=== PATIENT | female | born 1995 | race African-American/Black ===

== ENCOUNTER 2019-07-19 04:45 | Emergency (ER) | payer SELFPAY ==
[2019-07-19] MEDS ORDERED: FENTANYL CITR 100 MCG/2 ML ONE (05:21)
[2019-07-19] MEDS ORDERED: NA CHLORIDE 0.9% 1,000 ML ONE (05:22)
[2019-07-19] MEDS ORDERED: ONDANSETRON 4 MG/2 ML VIAL ONE (05:22)
[2019-07-19 05:24] LABS: Basophils % 0.4 % (0-1.3); Hematocrit 39.7 % (36.0-45.0); MPV 9.2 fL (7.6-11.3); RBC Red Blood Cell Count 4.59 M/uL (3.86-4.86)
[2019-07-19 05:41] LABS: ALT/SGPT 19 U/L (12-78); AST/SGOT 16 U/L (15-37); Alkaline Phosphatase 66 U/L (45-117); BUN Blood Urea Nitrogen 9 mg/dL (7-18); Bicarbonate 22 mmol/L (21-32); Bilirubin Direct 0.1 mg/dL (0-0.2); Bilirubin Total 0.5 mg/dL (0.2-1.0); Glucose Level 102 mg/dL (74-106); Lipase 90 U/L (73-393); Potassium 3.4 mmol/L (3.5-5.1); Protein, Total 7.7 g/dL (6.4-8.2); Sodium Level 143 mmol/L (136-145)
[2019-07-19 07:03] LABS: Urine Bacteria <20 /HPF (<20); Urine Culture Reflex Order REFLEXED; Urine RBC TNTC /HPF (NONE SEEN)
[2019-07-19] MEDS ORDERED: KETOROLAC 30 MG/ML INJ ONE (07:28)
--- NOTE | 2019-07-19 08:14 | EDPHYS ---
Physician Documentation [facility] Name: Tiffany Sarkar Age: 24 yrs Sex: Female : 1995 Arrival Date: 07/19/2019 Time: 04:48 Bed 5 Private MD: ED Physician Rudy Adams HPI: 07/19 07:05 This 24 yrs old Black Female presents to ER via Ambulatory with complaints of Abdominal pm1 Pain, Vomiting. 07:05 The patient presents with abdominal pain in the upper abdomen. Onset: The pm1 symptoms/episode began/occurred yesterday morning. The symptoms do not radiate. Associated signs and symptoms: Pertinent positives: nausea and vomiting, Pertinent negatives: chest pain, constipation, diarrhea, dysuria, fever, shortness of breath. Severity of pain: in the emergency department the pain is actually worse. The patient has not experienced similar symptoms in the past. The patient has not recently seen a physician. 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 - Social history:: Smoking status: Patient/guardian denies using tobacco, Patient uses street drugs, marijuana. - Ebola Screening: : No symptoms or risks identified at this time. ROS: 07:05 Constitutional: Negative for fever, chills, and weight loss, Eyes: Negative for injury, pm1 pain, redness, and discharge, ENT: Negative for injury, pain, and discharge, Neck: Negative for injury, pain, and swelling, Cardiovascular: Negative for chest pain, palpitations, and edema, Respiratory: Negative for shortness of breath, cough, wheezing, and pleuritic chest pain. 07:05 Back: Negative for injury and pain, : Negative for injury, bleeding, discharge, and swelling, MS/Extremity: Negative for injury and deformity, Skin: Negative for injury, rash, and discoloration, Neuro: Negative for headache, weakness, numbness, tingling, and seizure. 07:05 Abdomen/GI: Positive for abdominal pain, nausea and vomiting, Negative for diarrhea, constipation. Exam: 07:05 Constitutional: This is a well developed, well nourished patient who is awake, alert, pm1 and in no acute distress. Head/Face: Normocephalic, atraumatic. Eyes: Pupils equal round and reactive to light, extra-ocular motions intact. Lids and lashes normal. Conjunctiva and sclera are non-icteric and not injected. Cornea within normal limits. Periorbital areas with no swelling, redness, or edema. ENT: Nares patent. No nasal discharge, no septal abnormalities noted. Tympanic membranes are normal and external auditory canals are clear. Oropharynx with no redness, swelling, or masses, exudates, or evidence of obstruction, uvula midline. Mucous membranes moist. Neck: Trachea midline, no thyromegaly or masses palpated, and no cervical lymphadenopathy. Supple, full range of motion without nuchal rigidity, or vertebral point tenderness. No Meningismus. Chest/axilla: Normal chest wall appearance and motion. Nontender with no deformity. No lesions are appreciated. Cardiovascular: Regular rate and rhythm with a normal S1 and S2. No gallops, murmurs, or rubs. Normal PMI, no JVD. No pulse deficits. Respiratory: Lungs have equal breath sounds bilaterally, clear to auscultation and percussion. No rales, rhonchi or wheezes noted. No increased work of breathing, no retractions or nasal flaring. Back: No spinal tenderness. No costovertebral tenderness. Full range of motion. Skin: Warm, dry with normal turgor. Normal color with no rashes, no lesions, and no evidence of cellulitis. MS/ Extremity: Pulses equal, no cyanosis. Neurovascular intact. Full, normal range of motion. 07:05 Abdomen/GI: Inspection: abdomen appears normal, Bowel sounds: normal, Palpation: abdomen is soft and non-tender, mass, is not appreciated, rebound tenderness, is not appreciated. 07:05 Neuro: Orientation: is normal, Motor: is normal, Sensation: is normal. 08:05 Abdomen/GI: Inspection: abdomen appears normal, Bowel sounds: normal, Palpation: pm1 abdomen is soft and non-tender. Vital Signs: 04:58 BP 151 / 103; Pulse 84; Resp 16; Temp 98.4; Pulse Ox 99% on R/A; Weight 79.38 kg; aa1 Height 5 ft. 4 in. (162.56 cm); Pain 6/10; 05:38 BP 119 / 106; Pulse 79; Resp 17 S; Pulse Ox 100% on R/A; cc3 06:20 BP 104 / 85; Pulse 84; Resp 16 S; Pulse Ox 100% on R/A; Pain 2/10; cc3 04:58 Body Mass Index 30.04 (79.38 kg, 162.56 cm) aa1 MDM: 06:10 Patient medically screened. pm1 07:41 Data reviewed: vital signs. Data interpreted: Pulse oximetry: on room air is 100 %. pm1 Interpretation: normal. 08:05 Counseling: I had a detailed discussion with the patient and/or guardian regarding: the pm1 historical points, exam findings, and any diagnostic results supporting the discharge/admit diagnosis, lab results, radiology results, the need for outpatient follow up, to return to the emergency department if symptoms worsen or persist or if there are any questions or concerns that arise at home. 08:05 ED course: Reported negative U/S to patient and recommended CT ABD/pelvis to further pm1 evaluate abdominal pain. Patient's reporting that she is hungry. She reports hunger pain and no pain with palpation. Patient refused CT and wants to go home. Therefore will discharge home with antiemetic and pain medication. Educated on return precautions. 08:05 ED course: Patient reports resolution of pain with Toradol adminstered. pm1 07/19 05:05 Order name: Urine Microscopic Only; Complete Time: 07:21 07/19 05:06 Order name: Basic Metabolic Panel; Complete Time: 06:09 07/19 05:06 Order name: CBC with Diff; Complete Time: 06:09 07/19 05:06 Order name: Hepatic Function; Complete Time: 06:09 07/19 05:06 Order name: Lipase; Complete Time: 06:09 07/19 07:04 Order name: Urine Culture EDAL 07/19 05:05 Order name: Urine Test (obtain specimen); Complete Time: 07:35 07/19 05:05 Order name: Urine Dipstick-Ancillary (obtain specimen); Complete Time: 07:36 07/19 05:06 Order name: US Abdomen Limited 07/19 07:34 Order name: Test, Urine; Complete Time: 08:02 EDAL 07/19 05:06 Order name: IV Saline Lock; Complete Time: 05:28 07/19 05:06 Order name: Labs collected and sent; Complete Time: : Administered Medications: 05:15 Drug: NS 0.9% 1000 ml Route: IV; Rate: 1 bolus; Site: right antecubital; cc3 06:10 Follow up: Response: No adverse reaction; IV Status: Completed infusion; IV Intake: cc3 1000ml 05:17 Drug: fentaNYL (PF) 50 mcg {Note: RASS 0.} Route: IVP; Site: right antecubital; cc3 05:45 Follow up: Response: No adverse reaction; Pain is decreased; RASS: Alert and Calm (0) cc3 05:22 Drug: Zofran 4 mg Route: IVP; Site: right antecubital; cc3 05:45 Follow up: Response: No adverse reaction; Nausea is decreased cc3 07:52 Drug: TORadol 30 mg Route: IVP; Site: right antecubital; Disposition: 07/19/19 08:12 Discharged to Home. Impression: Unspecified abdominal pain, Vomiting. - Condition is Stable. - Discharge Instructions: Abdominal Pain, Adult, Nausea and Vomiting, Adult. - Prescriptions for Bentyl 20 mg Oral Tablet - take 1 tablet by ORAL route every 6 hours As needed; 20 tablet. Zofran 4 mg Oral Tablet - take 1 tablet by ORAL route every 12 hours As needed; 20 tablet. - Medication Reconciliation Form, Thank You Letter, Antibiotic Education, Prescription Opioid Use form. - Follow up: Emergency Department; When: As needed; Reason: Worsening of condition. Follow up: Private Physician; When: 2 - 3 days; Reason: Recheck today's complaints, Continuance of care, Re-evaluation by your physician. - Problem is new. - Symptoms have improved. Addendum: 07/21/2019 15:01 Co-signature as Attending Physician, Rudy Adams MD. g s Signatures: Dispatcher [employer] [facility] Lucina Billingsley RN RN sv Autenrieth, Alissa, RN RN aa1 Jenn Staley RN RN ss Albino Villanueva, WEBSPHERE MESSAGE BROKER DEVELOPER WEBSPHERE MESSAGE BROKER DEVELOPER pm1 Rudy Adams MD MD gs Cordel, Charlene cc3 Corrections: (The following items were deleted from the chart) 07/19 08:26 08:12 07/19/2019 08:12 Discharged to Home. Impression: Unspecified abdominal pain; ss Vomiting. Condition is Stable. Forms are Medication Reconciliation Form, Thank You Letter, Antibiotic Education, Prescription Opioid Use. Follow up: Emergency Department; When: As needed; Reason: Worsening of condition. Follow up: Private Physician; When: 2 - 3 days; Reason: Recheck today's complaints, Continuance of care, Re-evaluation by your physician. Problem is new. Symptoms have improved. pm1
--- NOTE | 2019-07-19 08:14 | ER ---
Nurse's Notes [facility] Name: Tiffany Sarkar Age: 24 yrs Sex: Female : 1995 Arrival Date: 07/19/2019 Time: 04:48 Bed 5 Private MD: Diagnosis: Unspecified abdominal pain;Vomiting Presentation: 07/19 04:57 Presenting complaint: Patient states: abd pain and N/V since 0700 yesterday. Transition aa1 of care: patient was not received from another setting of care. Onset of symptoms was July 18, 2019 at 07:00. Risk Assessment: Do you want to hurt yourself or someone else?. Initial Sepsis Screen: Does the patient meet any 2 criteria? No. Patient's initial sepsis screen is negative. Does the patient have a suspected source of infection? Yes: Acute abdominal pain. Care prior to arrival: None. 04:57 Method Of Arrival: Ambulatory aa1 04:57 Acuity: MYA 3 aa1 Triage Assessment: 04:58 General: Appears in no apparent distress. uncomfortable, Behavior is calm, cooperative, aa1 appropriate for age. 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 - Social history:: Smoking status: Patient/guardian denies using tobacco, Patient uses street drugs, marijuana. - Ebola Screening: : No symptoms or risks identified at this time. Screenin:56 Abuse screen: Denies threats or abuse. Denies injuries from another. Nutritional cc3 screening: No deficits noted. Tuberculosis screening: No symptoms or risk factors identified. Fall Risk Ambulatory Aid- None/Bed Rest/Nurse Assist (0 pts). Gait- Normal/Bed Rest/Wheelchair (0 pts) Mental Status- Oriented to own ability (0 pts). Assessment: 04:56 General: Appears in no apparent distress. uncomfortable, Behavior is calm, cooperative, cc3 appropriate for age. Pain: Complains of pain in bilateral lower abdomen Quality of pain is described as aching, Pain began 1 day ago. Neuro: Level of Consciousness is awake, alert, obeys commands, Oriented to person, place, time, situation, Appropriate for age. Cardiovascular: Denies chest pain, Heart tones S1 S2 present Capillary refill < 3 seconds in bilateral fingers Patient's skin is warm and dry. Respiratory: Airway is patent Respiratory effort is even, unlabored, Respiratory pattern is regular, symmetrical, Breath sounds are clear bilaterally. GI: Abdomen is round non-distended, Bowel sounds present X 4 quads. Abd is soft X 4 quads Abdomen is tender to palpation in lower abdomen. : No signs and/or symptoms were reported regarding the genitourinary system. EENT: No signs and/or symptoms were reported regarding the EENT system. Derm: Skin is intact, is healthy with good turgor, Skin is normal, black. Musculoskeletal: Circulation, motion, and sensation intact. Range of motion: intact in all extremities. 05:37 Reassessment: Patient appears in no apparent distress at this time. Patient and/or cc3 family updated on plan of care and expected duration. Pain level reassessed. Patient is alert, oriented x 3, equal unlabored respirations, skin warm/dry/pink. 06:12 Reassessment: Patient appears in no apparent distress at this time. Patient and/or cc3 family updated on plan of care and expected duration. Pain level reassessed. Patient is alert, oriented x 3, equal unlabored respirations, skin warm/dry/pink. Patient states feeling better. Patient states symptoms have improved. 06:35 Reassessment: Patient's urine sample is grossly hematuric as she said it's her second cc3 day of menstruation. [facility] sent the patient's urine sample to the laboratory. 08:26 Reassessment: Patient appears in no apparent distress at this time. Patient and/or ss family updated on plan of care and expected duration. Pain level reassessed. Patient is alert, oriented x 3, equal unlabored respirations, skin warm/dry/pink. Vital Signs: 04:58 BP 151 / 103; Pulse 84; Resp 16; Temp 98.4; Pulse Ox 99% on R/A; Weight 79.38 kg; aa1 Height 5 ft. 4 in. (162.56 cm); Pain 6/10; 05:38 BP 119 / 106; Pulse 79; Resp 17 S; Pulse Ox 100% on R/A; cc3 06:20 BP 104 / 85; Pulse 84; Resp 16 S; Pulse Ox 100% on R/A; Pain 2/10; cc3 04:58 Body Mass Index 30.04 (79.38 kg, 162.56 cm) aa1 ED Course: 04:48 Patient arrived in ED. ds1 04:54 Rudy Adams MD is Attending Physician. gs 04:56 Lizy Robbins is Primary Nurse. cc3 04:56 Patient has correct armband on for positive identification. Bed in low position. Call cc3 light in reach. Side rails up X 1. Pulse ox on. NIBP on. 04:57 Triage completed. aa1 04:58 Arm band placed on right wrist. aa1 05:15 Inserted saline lock: 20 gauge in right antecubital area, using aseptic technique. cc3 Blood collected. 06:10 Albino Villanueva NP is PHCP. pm1 06:10 Rudy Adams MD is Attending Physician. pm1 06:59 Report given to BRII Verdugo and BRII LUNA. cc3 07:34 Lucina Billingsley RN is Primary Nurse. sv 07:34 Test, Urine Sent. sv 07:53 Ultrasound completed. Patient tolerated well. sg3 07:53 Awaiting radiology results. sv 07:54 US Abdomen Limited In Process Unspecified. EDMS 08:24 No provider procedures requiring assistance completed. Patient did not have IV access ss during this emergency room visit. Administered Medications: 05:15 Drug: NS 0.9% 1000 ml Route: IV; Rate: 1 bolus; Site: right antecubital; cc3 06:10 Follow up: Response: No adverse reaction; IV Status: Completed infusion; IV Intake: cc3 1000ml 05:17 Drug: fentaNYL (PF) 50 mcg {Note: RASS 0.} Route: IVP; Site: right antecubital; cc3 05:45 Follow up: Response: No adverse reaction; Pain is decreased; RASS: Alert and Calm (0) cc3 05:22 Drug: Zofran 4 mg Route: IVP; Site: right antecubital; cc3 05:45 Follow up: Response: No adverse reaction; Nausea is decreased cc3 07:52 Drug: TORadol 30 mg Route: IVP; Site: right antecubital; sv Intake: 06:10 IV: 1000ml; Total: 1000ml. cc3 Outcome: 08:12 Discharge ordered by . pm1 08:24 Discharged to home ambulatory. 08:24 Condition: good 08:24 Discharge instructions given to patient, Instructed on discharge instructions, follow up and referral plans. medication usage, Demonstrated understanding of instructions, follow-up care, medications. 08:26 Patient left the ED. Signatures: Dispatcher [employer] Lucina Toure, BRII TERESA Shereen Luther RN RN aa1 Maggie Dougherty dsJenn Cordero RN RN ss Albino Villanueva, SPORT PSYCHOLOGIST SPORT PSYCHOLOGIST pm1 Rudy Adams MD MD gs Godinez, Sarah [facility] Lizy Robbins cc3
--- NOTE | 2019-07-19 08:27 | RAD REPORT ---
EXAM DESCRIPTION: US - Abdomen Exam Limited - 07/19/2019 7:53 am CLINICAL HISTORY: ABD PAIN COMPARISON: No comparisons FINDINGS: No gallstones, sludge or other abnormalities within the gallbladder lumen. There is no wal l thickening or pericholecystic fluid. No common duct stone or biliary tree dilatation identified. Preliminary findings provided at the time of the study. IMPRESSION: Normal gallbladder and biliary tree ultrasound.
[2019-07-19 08:33] VITALS: TEMP 98.4
[2019-07-19 08:34] VITALS: O2SAT 100
[2019-07-19 08:36] VITALS: BP 104/85
== END 2019-07-19 08:26 | disposition home or self-care (01) ==
LOC: ER 04:45
DX: R10.10 Upper abdominal pain, unspecified (principal); R11.10 Vomiting, unspecified; Z88.0 Allergy status to penicillin
CPT/HCPCS: 36415; 76705; 80048; 80076; 81015; 81025; 83690; 85025; 87086; 87088; 96361; 96374; 96375; 99284; J2405; J3010; J7030

== ENCOUNTER 2020-10-03 11:11 | Emergency (ER) | payer OTHER, SELFPAY ==
--- OUTSIDE RECORDS SUMMARY | 2020-10-03 11:20 | XMS REPORT | Continuity of Care Document ---
:1995 Author Organization [facility] t Address [address] [place] [address] Care Team Providers Name Role Phone Samuel Ennis Attending Clinician Carmela Casas Attending Clinician Problems This patient has no known problems. Allergies, Adverse Reactions, Alerts This patient has no known allergies or adverse reactions. Medications This patient has no known medications. Procedures This patient has no known procedures. Encounters Start End Encounter Admission Attending Care Care Encounter Source Date/Time Date/Time Type Type Clinicians Facility Department ID 2020-10-03 2020-10-03 Telephone SAMMY Pisano [id number] 00:00:00 00:00:00 Amparo Baker RUBBER COMPOUNDER FORMULATOR [id number] REGIONAL [id number] MATERNAL [id number] & CHILD [facility] 2020-09-22 2020-09-22 Telephone SAMMY Rivera [id number] 00:00:00 00:00:00 Tangela N RUBBER COMPOUNDER FORMULATOR [id number] REGIONAL [id number] MATERNAL [id number] & CHILD 107 [facility] 2020-09-20 2020-09-20 Initial SAMMY Rivera [id number] 08:56:07 09:59:20 Tangela N RUBBER COMPOUNDER FORMULATOR [id number] Visit REGIONAL [id number] MATERNAL [id number] & CHILD 107 [facility] Results This patient has no known results.
--- OUTSIDE RECORDS SUMMARY | 2020-10-03 11:20 | XMS REPORT | Summary of Care ---
:1995 Author Organization [facility] Address [address] [place] [address] Care Team Providers Name Role Phone Samuel Pisano Primary Care Provider Reason for Referral (Routine) Status Reason Specialty Diagnoses / Referred By Referred To Procedures Contact Contact New Request Maternal Diagnoses High-risk in first trimester Tangela Rivera Medicine Procedures CONSULT MATERNAL MEDICINE ULTRASOUND Preferred Location: MARIELA Hickey [address] [place] [address] Radiology Services (Routine) Status Reason Specialty Diagnoses / Referred By Referred To Procedures Contact Contact New Request Diagnostic Diagnoses Breast mass, right Tangela Rivera Radiology Procedures BI ULTRASOUND BREAST LIMITED RIGHT MARIELA Casey [address] [place] [address] Reason for Visit Reason Comments New OB Visit Encounter Details Date Type Department Care Team Description 09/20/[address] [facility] Hi gh-risk in first trimester (Primary Dx); Visit MARIELA Hickey Exposure to viral disease; [address] BMI 28.0-28.9,adult; [address] Need for influenza vaccination; [place], [place] Breast mass, ri ght; [id number] Nausea/vomiting in ; [phone] Positive depression screening Allergies Active Allergy Reactions Severity Noted Date Comments Penicillin Unknown - See comments 09/20/2020 documented as of this encounter (statuses as of 09/20/2020) Medications Medication Sig Dispensed Refills Start Date End Date Status proMETHazine 25 mg Take 1 tablet 30 tablet 3 09/20/2020 Active tabletIndications: by mouth every Nausea/vomiting in 4 (four) hours as needed for Nausea and Vomiting (N/V). PNV 67-iron Take 1 capsule 30 capsule 11 09/20/2020 A ctive ps-folate no.1-dha by mouth (VITAFOL ULTRA) 29 daily. mg iron- 1 mg-200 mg CapIndications: High-risk in first trimester TRAMADOL HCL Take by 0 Discont inued (TRAMADOL mouth. 0 ORAL)Indications: Dysmenorrhea azithromycin Take 2 Tabs by 2 Tab 0 03/16/2014 D iscontinued (ZITHROMAX) 500 mg mouth daily. 0 tabletIndications: Chlamydia trachomatis infection of lower genitourinary sites documented as of this encounter (statuses as of 09/20/2020) Active Problems Problem Noted Date High-risk in first trimester 09/20/2020 BMI 28.0-28.9,adult 09/20/2020 Nausea/vomiting in 09/20/2020 Breast mass, right 09/20/2020 Positive depression screening 09/20/2020 Estimated Date of Delivery Comments Yes 05/01/2021 Based on last menstr ual period of 07/25/2020 documented as of this encounter (statuses as of 09/20/2020) Resolved Problems Problem Noted Date Resolved Date Nexplanon removal 01/22/2020 09/20/2020 Chlamydia trachomatis infection of lower genitourinary sites 03/16/2014 09/20/2020 Not immune to rubella 03/11/2014 09/20/2020 Overview: Equivocal; needs vaccination. 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 Utility Irregular menstrual cycle 03/04/2014 09/20/2020 Dysmenorrhea 03/04/2014 09/20/2020 documented as of this encounter (statuses as of 09/20/2020) Immunizations Name Administration Dates Next Due Influenza Virus Vaccine Quad .5 mL IM 6+ MO 09/20/2020 MMR 03/16/2014 Td 06/03/2007 documented as of this encounter Social History Tobacco Use Types Packs/Day Years Used Date Never Smoker Smokeless Tobacco: Never Used Alcohol Use Drinks/Week oz/Week Comments No Estimated Date of Delivery Comments Yes 05/01/2021 Based on last menstr ual period of 07/25/2020 Sex Assigned at Date Recorded Not on file COVID-19 Exposure Response Date Recorded In the last month, have you been in contact with No / Unsure 09/20/2020 8:58 AM 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 documented as of this encounter Last Filed Vital Signs Vital Sign Reading Time Taken Comments Blood Pressure 137/82 09/20/2020 9:05 AM TYPESETTING MACHINE TENDER Pulse 74 09/20/2020 9:05 AM TYPESETTING MACHINE TENDER Temperature 36.6 C (97.8 F) 09/20/2020 9:05 AM TYPESETTING MACHINE TENDER Respiratory Rate 16 09/20/2020 9:05 AM TYPESETTING MACHINE TENDER Oxygen Saturation - - Inhaled Oxygen Concentration - - Weight 75.1 kg (165 lb 8 oz) 09/20/2020 9:05 AM TYPESETTING MACHINE TENDER Height 162.6 cm (5' 4") 09/20/2020 9:05 AM TYPESETTING MACHINE TENDER Body Mass Index 28.41 09/20/2020 9:05 AM TYPESETTING MACHINE TENDER documented in this encounter Progress Notes Tangela Rivera, MARIELA - 09/20/2020 9:00 AM CST Chief complaint: Chief Complaint Patient presents with New OB Visit CC: Initial Visit Tiffany Sarkar is a 25 year old, , Black or female. Patient's last menstrual period was 07/25/2020. She is 8w1d with a suspected intrauterine . Her Estimated Date of Delivery: 05/01/21. She is being seen today for her first obstetrical visit. Pt complains today of nausea and vomiting. She is using Accupressure wrist bands and taking "queasy"drops. She also reports a nonpainful mass in right breast that has been present for about 1 year. Denies change in size. Denies family h/o breast cancer. Patient denies recent foreign travel. Denies current physical, emotional or sexual abuse. Pt with positive depression screening today, she reportsfeeling sad around the holidays due to loss of mother and also this being her first and not having her mom around. She also doesn't feel like doing anything outside the house because she has been so nauseous. She denies SI/HI. OB History T0 L0 SAB0 TAB0 Ectopic0 Multiple0 Live Births0 Name of Baby 1: Not recorded Date: Not recorded GA: Not recorded Delivery: Not recorded Apgar1: Not recorded Apgar5: Not recorded Living: Not recorded Histories OB History Para Term AB Living 1 0 0 0 0 0 SAB TAB Ectopic Multiple Live Births 0 0 0 0 # Outcome Date GA Lbr Juan/2nd Weight Sex Delivery Anes PTL Lv 1 Current Past Medical History: Diagnosis Date Abnormal uterine bleeding Anxiety ongoing, not on medication at this time. Dysmenorrhea 03/04/2014 Laceration laceration of left finger and had to have surgery PID (pelvic inflammatory disease) Family History Problem Relation Age of Onset Hypertension Mother Diabetes Father Diabetes Brother Arthritis NoFHx Asthma NoFHx defects NoFHx Breast Cancer NoFHx Colon Cancer NoFHx Uterine Cancer NoFHx Ovarian Cancer NoFHx Cancer NoFHx Depression NoFHx Genetic NoFHx Heart NoFHx High cholesterol NoFHx Mental retardation NoFHx Neurological NoFHx Osteoporosis NoFHx Psychiatry NoFHx Other - see comments NoFHx Family Status Relation Name Status Mo Fa Alive Bro Alive NoFHx (Not Specified) Past Surgical History: Procedure Laterality Date OTHER 2010 left hand Social History Socioeconomic History Marital status: Single Spouse name: Not on file Number of children: 0 Years of education: 12 Highest education level: Not on file 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 Social Needs Financial resource strain: Not on file Food insecurity Worry: Not on file Inability: Not on file Transportation needs Medical: Not on file Non-medical: Not on file Tobacco Use Smoking status: Never Smoker Smokeless tobacco: Never Used Substance and Sexual Activity Alcohol use: No Drug use: No Sexual activity: Yes Partners: Male control/protection: Implant Comment: last had sex 02/04/2014 with condoms Lifestyle Physical activity Days per week: Not on file Minutes per session: Not on file Stress: Not on file Relationships Social connections Talks on phone: Not on file Gets together: Not on file Attends restoration service: Not on file Active member of club or organization: Not on file Attends meetings of clubs or organizations: Not on file Relationship status: Not on file Intimate partner violence Fear of current or ex partner: Not on file Emotionally abused: Not on file Physically abused: Not on file Forced sexual activity: Not on file Other Topics Concern Service Not Asked Blood Transfusions No Caffeine Concern Not Asked Occupational Exposure Not Asked Hobby Hazards Not Asked Sleep Concern Not Asked Stress Concern Not Asked Weight Concern Not Asked Special Diet Not Asked Back Care Not Asked Exercise Not Asked Bike Helmet Not Asked Seat Belt Not Asked Self-Exams Not Asked Social History Narrative No domestic violence or abuse Jain preference none. Patient lives with father. Social History Substance and Sexual Activity Sexual Activity Yes Partners: Male control/protection: Implant Comment: last had sex 02/04/2014 with condoms Genetic Screen Autism / Mental Retardation: No Rachel Disease: No Congenital Heart Defect: No Cystic Fibrosis: No Down Syndrome: No Familial Dysautonomia: No Hemophilia or other Blood Disorders: No [place] Chorea: No Maternal Metabolic Disorder--specify (eg. Type 1 Diabetes, PKU): No Muscular Dystrophy: No Neural Tube Defect: No Recurrent Loss or a Stillbirth: No Sickle Cell Disease or Trait: No Paolo Sachs: No Teratological Substances (specify type & strength/dose) since LMP: No Thalassemia: No Other Inherited Genetic or Chromosomal Disorder (specify): No No Significant History of Genetic Disorders: No Significant History of Genetic Disorders Labs Labs are pending. Radiology Radiology pending. Allergies Tiffany is allergic to penicillin. Medications Tiffany has a current medication list which includes the following prescription(s): vitafol ultra and promethazine. Review of Systems Constitutional: Negative. Negative for appetite change, fatigue and fever. HENT: Negative. Eyes: Negative. Negative for visual disturbance. Respiratory: Negative. Breasts: Negative. Positive for mass. Cardiovascular: Negative. Negative for palpitations and leg swelling. Gastrointestinal: Positive for nausea and vomiting. Negative for abdominal pain, constipation and diarrhea. Genitourinary: Negative. Negative for dysuria, vaginal bleeding, vaginal discharge and pelvic pain. Musculoskeletal: Negative. Skin: Negative. Negative for rash. Neurological: Negative. Negative for dizziness, light-headedness and headaches. Psychiatric/Behavioral: Negative. Endocrine: Endocrine negative BP 137/82 (BP Location: Right arm, Patient Position: Sitting, BP CUFF SIZE: Adult Medium) | Pulse 74 | Temp 36.6 C (97.8 F) (Oral) | Resp 16 | Ht 5' 4" (1.626 m) | Wt 165 lb 8 oz (75.1 kg) | LMP 07/25/2020 | BMI 28.41 kg/m Pregravid BMI: 28.82 Physical Exam Vitals reviewed. Constitutional: She is oriented to person, place, and time. She appears well- developed and well-nourished. Her body habitus is normal. See flowsheet Neck: No thyroid nodules and no thyromegaly palpated. Cardiovascular: Regular rate and rhythm. No murmur auscultated. No peripheral edema present. Pulmonary/Chest: Breath sounds clear to auscultation. Normal inspiratory effort. Abdominal: Abdomen is soft. No mass palpated. No tenderness present. There is no hepatosplenomegaly. Neuro/Psychiatric: She has a normal mood and affect. She is oriented to person, place, and time. Skin: Skin normal. No lesion and no rash present. Genitourinary Comments: Chaperoned by: Alaina Gonzáles LVN Breast: Right breast exhibits mass. Right breast exhibits no nipple discharge and no tenderness. Left breast exhibits no mass, no nipple discharge and no tenderness. The mass is mobile. There is not associated skin dimpling. There is not associated nipple retraction. There is not associated nipple discharge. There is not peau d' orange present. There is not palpable lymphadenopathy in the right axilla(s). Normal left breast and normal right breast External genitalia: Normal external genitalia appropriate for age. No labial lesion. Bladder: No tenderness. Normal bladder Vagina:Normal vagina. No lesion inspected. No abnormal vaginal discharge found. No lesions in thevagina. Cervix: Normal cervix. No lesion. No tenderness and no discharge present. Uterus: Uterus is normal size, normal position and non-tender. Normal uterus Adnexa: Right adnexa without tenderness. Left adnexa without tenderness. Normal left adnexa and normal right adnexa PHYSICAL: General Exam: HEENT: Normal Thyroid: Normal Lymph Node: Normal Neurological: Normal Heart: Normal Lungs: Normal Breasts: Normal Abdomen: Normal Skin: Normal Extremities: Normal Pelvic Exam: Vulva: Normal Vagina: Normal Cervix: Normal Membrane status: Intact Uterus: 8 Weeks Adnexa: Normal Rectum: Normal Spines: Average Subpubic Arch: Normal Assessment/Plan 1. High-risk in first trimester 8w1d New OB packet reviewed TWG discussed Discussed recommendation for social distancing and PPE use Initiate Vitamins Increase Fluid Intake. Minimum of 8 water bottles daily. Desires genetic screening, NT scan and FTS pending, plan MSAFP in 2nd trimester - POCT TEST - GLUCOSE 1 HOUR POST PRANDIAL - POCT URINALYSIS W/O SPECIFIC GRAVITY; Standing - CBC WITH DIFF - HEPATITIS B SURFACE ANTIGEN - HIV 1/2 AG-AB WITH REFLEX - WORKUP, BLOOD BANK - RUBELLA SCREEN (CORY) IGG - GALV ONLY - SYPHILIS IGG/IGM - URINE CULTURE - VZV ANTIBODY SCREEN - Sickle Cell Screen - POCT URINALYSIS W SPECIFIC GRAVITY; Standing - POCT URINALYSIS W/O SPECIFIC GRAVITY - PNV 67-iron ps-folate no.1-dha (VITAFOL ULTRA) 29 mg iron- 1 mg-200 mg Cap; Take 1 capsule by mouth daily. Dispense: 30 capsule; Refill: 11 - PAP Smear-Liquid Based - GC & CHLAMYDIA AMPLIFIED ASSAY - TRICHOMONAS AMPLIFIED ASSAY - CONSULT MATERNAL MEDICINE ULTRASOUND Preferred Location: [place] 2. Exposure to viral disease Per guidelines - SARS-COV-2 IGG 3. BMI 28.0-28.9,adult The patient is asked to make an attempt to improve diet and exercise patterns to aid in medical management of this problem. 4. Need for influenza vaccination Administered today. VSS provided. - FLU VACC([id number]), 6+ MONTHS, IM, QUAD (FLUZONE/FLULAVAL/FLUARIX) 5. Breast mass, right Breast ultrasound ordered - BI ULTRASOUND BREAST LIMITED RIGHT; Future 6. Nausea/vomiting in Home remedies reviewed and Rx sent. Instructed to take OTC vitamin B6 and doxylamine BID. Only take promethazine PRN for breakthrough N/V. - proMETHazine 25 mg tablet; Take 1 tablet by mouth every 4 (four) hours as needed for Nausea and Vomiting (N/V). Dispense: 30 tablet; Refill: 3 7. Positive depression screening Denies SI/HI Declines medication Continue to monitor Return to clinic in 4 weeks. Discussed treatment options. Medications as ordered. Reviewed patient instructions and provided printed copy. at 8w1d This visit did not involve counseling and coordination that comprised more than 50% of the visit time. ubioOpal LVN - 09/20/2020 9:00 AM CSTPatient is 25 year old female here for current . Patient is . 1) Previous delivery methods N/a 2) Patient is experiencing severe cramping 3) Patient is not experiencing bleeding. 4) LMP 07/25/2020 5) Last Pap was:03/10/2014 Results:negative 6) PPD candidate? no 7) Patient denies history of physical, emotional, or sexual abuse. Patient states she currently feels safe at home. 8) C/O n/v daily 9) Would like flu vaccine? yes 10) Hx of (+)positive COVID? no NOB packet given and reviewed with patient. documented in this encounter Plan of Treatment Date Type Specialty Care Team Description 10/18/2020 Routine Visit [facility] Sade Devine, [employer] DEVELOPER [address] [address] [phone] Name Type Priority Associated Diagnoses Order S chedule GLUCOSE 1 HOUR POST LAB Routine High-risk i n Ordered: 09/20/2020 PRANDIAL first trimester POCT URINALYSIS W/O LAB Routine High-risk i n 20 Occurrences starting SPECIFIC GRAVITY first trimester 09/20/20 20 until 09/20/2021, 1 c ompleted CBC WITH DIFF LAB Routine High-risk in Orde red: 09/20/2020 first trimester HEPATITIS B SURFACE LAB Routine High-risk i n Ordered: 09/20/2020 ANTIGEN first trimester HIV 1/2 AG-AB WITH LAB Routine High-risk in Ordered: 09/20/2020 REFLEX first trimester WORKUP, BLOOD LAB Routine High-risk pregnanc y in Ordered: 09/20/2020 BANK first trimester RUBELLA SCREEN (CORY) LAB Routine High-risk pregnanc y in Ordered: 09/20/2020 IGG first trimester GALV ONLY - SYPHILIS LAB Routine High-risk in Ordered: 09/20/2020 IGG/IGM first trimester URINE CULTURE LAB Routine High-risk in Orde red: 09/20/2020 first trimester VZV ANTIBODY SCREEN LAB Routine High-risk i n Ordered: 09/20/2020 first trimester Sickle Cell Screen LAB Routine High-risk in Ordered: 09/20/2020 first trimester SARS-COV-2 IGG LAB Routine Exposure to viral Ordered: 09/20/2020 disease POCT URINALYSIS W LAB Routine High-risk in 20 Occurrences starting SPECIFIC GRAVITY first trimester 09/20/20 20 until 07/17/2021 BI ULTRASOUND BREAST IMAGING Routine Breast mass, right E xpected: 09/20/2020, LIMITED RIGHT Expires: 11/21 PAP Smear-Liquid Based LAB Routine High-risk pregnanc y in Ordered: 09/20/2020 first trimester GC & CHLAMYDIA LAB Routine High-risk in Ord ered: 09/20/2020 AMPLIFIED ASSAY first trimester TRICHOMONAS AMPLIFIED LAB Routine High-risk in Ordered: 09/20/2020 ASSAY first trimester Health Maintenance Due Date Last Done Comments PAP SMEAR 03/10/2017 03/10/2014 INFLUENZA VACCINE (#1) 2020 DTaP,Tdap,and Td Vaccines (2 09/20/2021 06/03/2007 Pos tponed from 02/28/2004 - Tdap) (Alternative Fabrice delines) Depression Screening 09/20/2021 09/20/2020, 09/20/2020 VARICELLA VACCINES (1 of 2 - 09/20/2021 Pos tponed from 1994 2-dose childhood series) (Pregna nt or ) PNEUMOCOCCAL 0-64 YEARS Aged Out No longe r eligible based COMBINED SERIES on patient's age to complete this to pic documented as of this encounter Procedures Procedure Name Priority Date/Time Associated Diagnosis Comme nts FLU VACC Routine 09/20/2020 9:25 Need for influenza ([id number]), 6+ AM TYPESETTING MACHINE TENDER vaccination MONTHS, IM, QUAD POCT URINALYSIS W/O Routine 09/20/2020 9:12 High-risk pregnan cy Results for this SPECIFIC GRAVITY AM TYPESETTING MACHINE TENDER in first trimester proce dure are in the results section. POCT TEST Routine 09/20/2020 9:12 High-risk pregnan cy Results for this AM TYPESETTING MACHINE TENDER in first trimester procedure are in the results section. documented in this encounter Results POCT URINALYSIS W/O SPECIFIC GRAVITY (09/20/2020 9:12 AM TYPESETTING MACHINE TENDER) Pathologist Sig nature POCT PH U 8 5 - 8 mg/dl POCT U LEUK EST 2+ Negative - Negative POCT U NIT negative Negative - Negative POCT U PROT 1+ Negative - Negative POCT U GLU negative Negative - Negative POCT U KETONE small Negative - Negative POCT U BLD negative Negative - Negative Specimen Urine - URINE, CLEAN CATCH POCT TEST (09/20/2020 9:12 AM TYPESETTING MACHINE TENDER) Pathologist Sig nature POCT PREG Positive On board controls acceptable Yes with C Line POCT PREG LOT # POCT PREG TEST DATE Specimen Urine - URINE, CLEAN CATCH documented in this encounter Visit Diagnoses Diagnosis High-risk in first trimester - Primary Exposure to viral disease Contact with or exposure to other viral diseases BMI 28.0-28.9,adult Body Mass Index 28.0-28.9, adult Need for influenza vaccination Need for prophylactic vaccination and in oculation against influenza Breast mass, right Lump or mass in breast Nausea/vomiting in Unspecified vomiting of , unspe cified as to episode of care Positive depression screening Other abnormal clinical finding documented in this encounter Insurance Payer Benefit Plan / Subscriber ID Effective Dates Phone Addre ss Type Group [employer] MEDICAID OF [id number] 2020-[facility] [phone] [address] Medicaid [place] t [id number] [place] [address] (Home) [place] [address] documented as of this encounter Advance Directives Name Relationship Healthcare Agent Relationship Co mmunication Hunter Russell Father Health Care Agent [phone] ( Mobile)
--- OUTSIDE RECORDS SUMMARY | 2020-10-03 11:20 | XMS REPORT | Summary of Care ---
:1995 Author Organization [facility] - Health Address [address] [place] [address] Care Team Providers Name Role Phone KendontrellSamuel chavez [facility]ITAL[facility] Primary Care Provider Encounter Details Date Type Department Care Team Description 09/20/2020 Orders Only [facility] Doctor Unassigned, No [address] [facility] [place] [address] [address] [place] [address] Allergies Active Allergy Reactions Severity Noted Date Comments Penicillin Unknown - See comments 09/20/2020 documented as of this encounter (statuses as of 09/20/2020) Medications No known medicationsdocumented as of this encounter (statuses as of 09/20/2020) Active Problems Problem Noted Date High-risk in first trimester 09/20/2020 BMI 28.0-28.9,adult 09/20/2020 Estimated Date of Delivery Comments Yes 05/01/2021 Based on last menstr ual period of 07/25/2020 documented as of this encounter (statuses as of 09/20/2020) Resolved Problems Problem Noted Date Resolved Date Nexplanon removal 01/22/2020 09/20/2020 Chlamydia trachomatis infection of lower genitourinary sites 03/16/2014 09/20/2020 Not immune to rubella 03/11/2014 09/20/2020 Overview: Equivocal; needs vaccination. 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 documented as of this encounter Last Filed Vital Signs Not on filedocumented in this encounter Plan of Treatment Health Maintenance Due Date Last Done Comments Depression Screening 2005 PAP SMEAR 03/10/2017 03/10/2014 INFLUENZA VACCINE (#1) 2020 DTaP,Tdap,and Td Vaccines (2 - 09/20/2021 06/03/2007 P ostponed from 02/28/2004 Tdap) (Alternative Fabrice delines) VARICELLA VACCINES (1 of 2 - 09/20/2021 Pos tponed from 1994 2-dose childhood series) (Pregna nt or ) PNEUMOCOCCAL 0-64 YEARS COMBINED Aged Out No longer eligible based on SERIES patient's age to complete this topic documented as of this encounter Procedures Procedure Name Priority Date/Time Associated Diagnosis Comme nts NO SHOW OR MISSED Routine 09/20/2020 9:22 AM APPOINTMENT POLICY GIS CONSULTANT ACKNOWLEDGEMENT documented in this encounter Results Not on filedocumented in this encounter Insurance Payer Benefit Plan / Subscriber ID Effective Dates Phone Addre ss Type Group [facility] MEDICAID OF [id number] 2020-[facility] [phone] Medicaid [place] t [address] [place] [address] [facility] [id number] 2014-Present [phone] [address] Medicaid [id number] [place] [address] documented as of this encounter Advance Directives Name Relationship Healthcare Agent Relationship Co mmunication Hunter Russell Father Health Care Agent [phone] ( Mobile)
--- OUTSIDE RECORDS SUMMARY | 2020-10-03 11:21 | XMS REPORT | Summary of Care ---
:1995 Author Organization [facility] Address [address] [place] [address] Care Team Providers Name Role Phone Samuel Pisano Primary Care Provider Reason for Visit Reason Comments TRICHOMONIASIS Encounter Details Date Type Department Care Team Description 09/22/2020 [facility] ly N, VIDEO EDITING INTERN TRICHOMONIASIS [place] [address] [place] [address] [place] [address] [phone] Allergies Active Allergy Reactions Severity Noted Date Comments Penicillin Unknown - See comments 09/20/2020 documented as of this encounter (statuses as of 09/22/2020) Medications Medication Sig Dispensed Refills Start Date End Date Status proMETHazine 25 mg Take 1 tablet by 30 tablet 3 09/20/2020 Active tabletIndications: mouth every 4 Nausea/vomiting in (four) hours as needed for Nausea and Vomiting (N/V). PNV 67-iron ps-folate Take 1 capsule 30 capsule 11 09/20/2020 Active no.1-dha (VITAFOL by mouth daily. ULTRA) 29 mg iron- 1 mg-200 mg CapIndications: High-risk in first trimester metroNIDAZOLE Take 4 tablets 4 tablet 0 09/22/2020 09/22/2020 Active (FLAGYL) 500 mg by mouth once tabletIndications: now for 1 dose. Trichomonal vaginitis during , antepartum documented as of this encounter (statuses as of 09/22/2020) Active Problems Problem Noted Date Trichomonal vaginitis during , antepartum 12/2019 High-risk in first trimester 09/20/2020 BMI 28.0-28.9,adult 09/20/2020 Nausea/vomiting in 09/20/2020 Breast mass, right 09/20/2020 Positive depression screening 09/20/2020 Estimated Date of Delivery Comments Yes 05/01/2021 Based on last menstr ual period of 07/25/2020 documented as of this encounter (statuses as of 09/22/2020) Resolved Problems Problem Noted Date Resolved Date Nexplanon removal 01/22/2020 09/20/2020 Chlamydia trachomatis infection of lower genitourinary sites 03/16/2014 09/20/2020 Not immune to rubella 03/11/2014 09/20/2020 Overview: Equivocal; needs vaccination. ICD10 Diagnosis Term Experimental Box Tester Utility Irregular menstrual cycle 03/04/2014 09/20/2020 Dysmenorrhea 03/04/2014 09/20/2020 documented as of this encounter (statuses as of 09/22/2020) Immunizations Name Administration Dates Next Due Influenza [...] with No / Unsure 09/20/2020 8:58 AM REPORTING MANAGER someone who was confirmed or suspected to have Coronavirus / COVID-19? documented as of this encounter Last Filed Vital Signs Not on filedocumented in this encounter Miscellaneous Notes Telephone Encounter - Ana Lilia Melendrez RN - 09/22/2020 1:16 PM REPORTING MANAGER Notified the patient of her positive STI results Trichomonas. Notified the patient her medication has been sent to her pharmacy on file. Educated patient she should complete the entire course, advised patient to practice safe sex practices and to remain abstinent for at least 1-2 weeks post treatment. Patient declines to have partner treated. Advised patient on HIV testing if she has not recently been tested. Advised [facility] appointment in 3 months. Pt verbalized understanding. ANA LILIA MELENDREZ RN 09/22/2020 1:17 PM RTING MANAGER Telephone Encounter - Tangela Rivera FNP - 09/22/2020 8:00 AM CSTPlease notify pt of (+) Trichomonas. Rx sent to pharmacy on file, take as a single dose with food. Abstinence until patient and partner finish Abx and then for 1 week after. Expedited partner treatmentper guidelines or partner to seek own testing and treatment. Safe sex practices. documented in this encounter Plan of Treatment Date Type Specialty Care Team Description 10/18/2020 Routine Visit [facility] Yael Devine FNP [address] [place], [place] [address] 10/18/2020 Appointment Radiology Tangela Rivera FNP [address] [place], [place] [address] [phone] 10/24/2020 Nuclear Supervising Operator Visit Maternal Medicine 10/24/2020 Nuclear Supervising Operator Visit [facility]ellites Lab/Pedi, Pea-Rmchp Health Maintenance Due Date Last Done Comments PAP SMEAR 03/10/2017 03/10/2014 DTaP,Tdap,and Td Vaccines (2 09/20/2021 06/03/2007 Pos tponed from 02/28/2004 - Tdap) (Alternative Fabrice delines) Depression Screening 09/20/2021 09/20/2020, 09/20/2020 INFLUENZA VACCINE Completed 09/20/2020 PNEUMOCOCCAL 0-64 YEARS Aged Out No longe r eligible based COMBINED SERIES on patient's age to complete this to pic documented as of this encounter Results Not on filedocumented in this encounter Visit Diagnoses Diagnosis Trichomonal vaginitis during , antepartum - Primary documented in this encounter Insurance Payer Benefit Plan / Subscriber ID Effective Dates Phone Addre ss Type Group [facility] MEDICAID OF [id number] 2020-[place] [phone] [address] Medicaid [facility] [address] [place] [address] [facility] [id number] 2014-Present [phone] [address] Medicaid [address] [place] [address] documented as of this encounter Advance Directives Name Relationship Healthcare Agent Relationship Co mmunication Hunter Russell [facility] Health Care Agent [phone] ( Mobile)
--- OUTSIDE RECORDS SUMMARY | 2020-10-03 11:21 | XMS REPORT | Summary of Care ---
:1995 Author Organization [facility] Address [address] [place] [address] Care Team Providers Name Role Phone Samuel Pisano Primary Care Provider Reason for Referral (Routine) Status Reason Specialty Diagnoses / Referred By Referred To Procedures Contact Contact New Request Maternal Diagnoses High-risk in first trimester Tangela Rivera Medicine Procedures CONSULT MATERNAL MEDICINE ULTRASOUND Preferred Location: [facility]EL[facility] Hickey [address] [place] [address] Radiology Services (Routine) Status Reason Specialty Diagnoses / Referred By Referred To Procedures Contact Contact New Request Diagnostic Diagnoses Breast mass, right Tangela Rivera Radiology Procedures BI ULTRASOUND BREAST LIMITED RIGHT [facility] Casey [address] [place] [address] Reason for Visit Reason Comments New OB Visit Encounter Details Date Type Department Care Team Description [facility]2020 [facility] Hi gh-risk in first trimester (Primary Dx); Visit [facility] Exposure to viral disease; [address] BMI 28.0-28.9,adult; Street Ankit A Need for influenza vaccination; [place], [place] Breast mass, ri ght; [phone] Nausea/vomiting in ; [phone] Positive depression screening Allergies Active Allergy Reactions [...] Overview: Equivocal; needs vaccination. ICD10 Diagnosis Term Balance Wheel Hand Filer Utility Irregular menstrual cycle 03/04/2014 09/20/2020 Dysmenorrhea [...] with No / Unsure 09/20/2020 8:58 AM WEB MARKETING INTERN someone who was confirmed or suspected to have Coronavirus / COVID-19? documented as of this encounter Last Filed Vital Signs Vital Sign Reading Time Taken Comments Blood Pressure 137/82 09/20/2020 9:05 AM WEB MARKETING INTERN Pulse 74 09/20/2020 9:05 AM WEB MARKETING INTERN Temperature 36.6 C (97.8 F) 09/20/2020 9:05 AM WEB MARKETING INTERN Respiratory Rate 16 09/20/2020 9:05 AM WEB MARKETING INTERN Oxygen Saturation - - Inhaled Oxygen Concentration - - Weight 75.1 kg (165 lb 8 oz) 09/20/2020 9:05 AM WEB MARKETING INTERN Height 162.6 cm (5' 4") 09/20/2020 9:05 AM WEB MARKETING INTERN Body Mass Index 28.41 09/20/2020 9:05 AM WEB MARKETING INTERN documented in this encounter Progress Notes Tangela [...] file Gets together: Not on file Attends alevism service: Not on file Active member of [...] History Narrative No domestic violence or abuse Confucianist preference none. Patient lives with father. Social History Substance and Sexual Activity Sexual Activity Yes Partners: Male control/protection: Implant Comment: last had sex 02/04/2014 with condoms Genetic Screen Autism / Mental Retardation: No Rachel Disease: No Congenital Heart Defect: No Cystic Fibrosis: No Down Syndrome: No Familial Dysautonomia: No Hemophilia or other Blood Disorders: No [place] Chorea: No Maternal Metabolic Disorder--specify (eg. Type [...] - CONSULT MATERNAL MEDICINE ULTRASOUND Preferred Location: [place] 2. Exposure to viral disease Per guidelines - SARS-COV-2 IGG 3. BMI 28.0-28.9,adult The patient is asked to make an attempt to improve diet and exercise patterns to aid in medical management of this problem. 4. Need for influenza vaccination Administered today. VSS provided. - FLU VACC([id number]), 6+ MONTHS, IM, QUAD (FLUZONE/FLULAVAL/FLUARIX) 5. Breast [...] 10/18/2020 Routine Visit [facility]ellites Sade Devine, ADVENTURE CHALLENGE INSTRUCTOR [address] [place] [address] [phone] Name Type Priority Associated Diagnoses Date/Ti me CBC WITH DIFF LAB Routine High-risk in 10/2019 10:05 AM first trimester WEB MARKETING INTERN HEPATITIS B SURFACE LAB Routine High-risk i n 09/20/2020 10:05 AM ANTIGEN first trimester WEB MARKETING INTERN HIV 1/2 AG-AB WITH REFLEX LAB Routine High-risk pregn roc in 09/20/2020 10:05 AM first trimester WEB MARKETING INTERN RUBELLA SCREEN (CORY) LAB Routine High-risk pregnanc y in 09/20/2020 10:05 AM IGG first trimester WEB MARKETING INTERN GALV ONLY - SYPHILIS LAB Routine High-risk in 09/20/2020 10:05 AM IGG/IGM first trimester WEB MARKETING INTERN URINE CULTURE LAB Routine High-risk in 10/2019 10:05 AM first trimester WEB MARKETING INTERN VZV ANTIBODY SCREEN LAB Routine High-risk i n 09/20/2020 10:05 AM first trimester WEB MARKETING INTERN Sickle Cell Screen LAB Routine High-risk in 09/20/2020 10:05 AM first trimester WEB MARKETING INTERN SARS-COV-2 IGG LAB Routine Exposure to viral 09/20/20 20 10:05 AM disease WEB MARKETING INTERN PAP Smear-Liquid Based LAB Routine High-risk pregnanc y in 09/20/2020 10:05 AM first trimester WEB MARKETING INTERN GC & CHLAMYDIA AMPLIFIED LAB Routine High-risk pregna ncy in 09/20/2020 10:05 AM ASSAY first trimester WEB MARKETING INTERN TRICHOMONAS AMPLIFIED LAB Routine High-risk in 09/20/2020 10:05 AM ASSAY first trimester WEB MARKETING INTERN Name Type Priority Associated Diagnoses Order S chedule GLUCOSE 1 HOUR POST LAB Routine High-risk i n Ordered: 09/20/2020 PRANDIAL first trimester POCT URINALYSIS W/O LAB Routine High-risk i n 20 Occurrences starting SPECIFIC GRAVITY first trimester 09/20/20 20 until 09/20/2021, 1 c ompleted WORKUP, BLOOD LAB Routine High-risk pregnanc y in Ordered: 09/20/2020 BANK first trimester POCT URINALYSIS W LAB Routine High-risk in 20 Occurrences starting SPECIFIC GRAVITY first trimester 09/20/20 20 until 07/17/2021 BI ULTRASOUND BREAST IMAGING Routine Breast mass, right E xpected: 09/20/2020, LIMITED RIGHT Expires: 11/21 Health Maintenance Due Date Last Done Comments [...] VACC Routine 09/20/2020 9:25 Need for influenza ([id number]), 6+ AM WEB MARKETING INTERN vaccination MONTHS, IM, QUAD POCT URINALYSIS W/O Routine 09/20/2020 9:12 High-risk pregnan cy Results for this SPECIFIC GRAVITY AM WEB MARKETING INTERN in first trimester proce dure are in the results section. POCT TEST Routine 09/20/2020 9:12 High-risk pregnan cy Results for this AM WEB MARKETING INTERN in first trimester procedure are in the results section. documented in this encounter Results POCT URINALYSIS W/O SPECIFIC GRAVITY (09/20/2020 9:12 AM WEB MARKETING INTERN) Pathologist Sig nature POCT PH U 8 [...] CLEAN CATCH POCT TEST (09/20/2020 9:12 AM WEB MARKETING INTERN) Pathologist Sig nature POCT PREG Positive On [...] Addre ss Type Group [facility] MEDICAID OF [id number] [facility] [phone] [address] Medicaid [place] t [id number] [place] [address] (Home) [place] [address] documented as of this encounter Advance Directives Name Relationship Healthcare Agent Relationship Co mmunication Hunter Russell Father Health Care Agent [phone] ( Mobile)
--- OUTSIDE RECORDS SUMMARY | 2020-10-03 11:21 | XMS REPORT | Summary of Care ---
:1995 Author Organization [facility] Address [address] [place] [address] Care Team Providers Name Role Phone Samuel Pisano Primary Care Provider Reason for Referral (Routine) Status Reason Specialty Diagnoses / Referred By Referred To Procedures Contact Contact New Request Maternal Diagnoses High-risk in first trimester Tangela Rivera Medicine Procedures CONSULT MATERNAL MEDICINE ULTRASOUND Preferred Location: [facility]ickey [address] [place] [address] Radiology Services (Routine) Status Reason Specialty Diagnoses / Referred By Referred To Procedures Contact Contact New Request Diagnostic Diagnoses Breast mass, right Tangela Rivera Radiology Procedures BI ULTRASOUND BREAST LIMITED RIGHT [facility] Casey [address] [place] [address] Reason for Visit Reason Comments New OB Visit Encounter Details Date Type Department Care Team Description 09/20/2020 [facility] Rivera Hi gh-risk in first trimester (Primary Dx); Visit [facility]A Hickey Exposure to viral disease; [address] BMI 28.0-28.9,adult; Street [address] Need for influenza vaccination; [place] Breast mass, ri ght; [phone] Nausea/vomiting in ; [phone] Positive depression screening Allergies Active Allergy Reactions [...] Overview: Equivocal; needs vaccination. ICD10 Diagnosis Term Business Manager [employer] Utility Irregular menstrual cycle 03/04/2014 09/20/2020 Dysmenorrhea [...] with No / Unsure 09/20/2020 8:58 AM WARP DRESSER someone who was confirmed or suspected to have Coronavirus / COVID-19? documented as of this encounter Last Filed Vital Signs Vital Sign Reading Time Taken Comments Blood Pressure 137/82 09/20/2020 9:05 AM WARP DRESSER Pulse 74 09/20/2020 9:05 AM WARP DRESSER Temperature 36.6 C (97.8 F) 09/20/2020 9:05 AM WARP DRESSER Respiratory Rate 16 09/20/2020 9:05 AM WARP DRESSER Oxygen Saturation - - Inhaled Oxygen Concentration - - Weight 75.1 kg (165 lb 8 oz) 09/20/2020 9:05 AM WARP DRESSER Height 162.6 cm (5' 4") 09/20/2020 9:05 AM WARP DRESSER Body Mass Index 28.41 09/20/2020 9:05 AM WARP DRESSER documented in this encounter Progress Notes Tangela [...] file Gets together: Not on file Attends taoist service: Not on file Active member of [...] History Narrative No domestic violence or abuse Evangelical preference none. Patient lives with father. Social History Substance and Sexual Activity Sexual Activity Yes Partners: Male control/protection: Implant Comment: last had sex 02/04/2014 with condoms Genetic Screen Autism / Mental Retardation: No Rachel Disease: No Congenital Heart Defect: No Cystic Fibrosis: No Down Syndrome: No Familial Dysautonomia: No Hemophilia or other Blood Disorders: No [place] Chorea: No Maternal Metabolic Disorder--specify (eg. Type [...] - CONSULT MATERNAL MEDICINE ULTRASOUND Preferred Location: [place] 2. Exposure to viral disease Per guidelines - SARS-COV-2 IGG 3. BMI 28.0-28.9,adult The patient is asked to make an attempt to improve diet and exercise patterns to aid in medical management of this problem. 4. Need for influenza vaccination Administered today. VSS provided. - FLU VACC([id number]), 6+ MONTHS, IM, QUAD (FLUZONE/FLULAVAL/FLUARIX) 5. Breast [...] 10/18/2020 Routine Visit [facility]ellites Sade Devine, SUBSTITUTE NURSE [address] [address] [phone] Name Type Priority Associated Diagnoses Date/Ti me PAP Smear-Liquid Based LAB Routine High-risk pregnanc y in 09/20/2020 10:05 AM first trimester WARP DRESSER GC & CHLAMYDIA AMPLIFIED LAB Routine High-risk pregna ncy in 09/20/2020 10:05 AM ASSAY first trimester WARP DRESSER TRICHOMONAS AMPLIFIED LAB Routine High-risk in 09/20/2020 10:05 AM ASSAY first trimester WARP DRESSER Name Type Priority Associated Diagnoses Order S [...] VACC Routine 09/20/2020 9:25 Need for influenza ([id number]), 6+ AM WARP DRESSER vaccination MONTHS, IM, QUAD POCT URINALYSIS W/O Routine 09/20/2020 9:12 High-risk pregnan cy Results for this SPECIFIC GRAVITY AM WARP DRESSER in first trimester proce dure are in the results section. POCT TEST Routine 09/20/2020 9:12 High-risk pregnan cy Results for this AM WARP DRESSER in first trimester procedure are in the results section. documented in this encounter Results POCT URINALYSIS W/O SPECIFIC GRAVITY (09/20/2020 9:12 AM WARP DRESSER) Pathologist Sig nature POCT PH U 8 [...] CLEAN CATCH POCT TEST (09/20/2020 9:12 AM WARP DRESSER) Pathologist Sig nature POCT PREG Positive On [...] Effective Dates Phone Addre ss Type Group [facility] MEDICAID OF [id number] 2020-[facility] [phone] [address] Medicaid [place] t [id number] [place] [address] (Home) [place] [address] documented as of this encounter Advance Directives Name Relationship Healthcare Agent Relationship Co mmunication Hunter Russell Father Health Care Agent [phone] ( Mobile)
--- OUTSIDE RECORDS SUMMARY | 2020-10-03 11:21 | XMS REPORT | Summary of Care ---
:1995 Author Organization [facility] Address [address] [place] [address] Care Team Providers Name Role Phone Smauel Pisano [facility] Primary Care Provider Reason for Visit Reason Comments Assessment Encounter Details Date Type Department Care Team Description 10/03/2020 [facility]ham, Assessment [address] [place] [address] [phone] [address] [place], [place] [address] [phone] Allergies Active Allergy Reactions Severity Noted Date Comments Penicillin Unknown - See comments 09/20/2020 documented as of this encounter (statuses as of 10/03/2020) Medications Medication Sig Dispensed Refills Start Date End Date Status proMETHazine 25 mg Take 1 tablet by 30 tablet 3 09/20/2020 Active tabletIndications: mouth every 4 Nausea/vomiting in (four) hours as needed for Nausea and Vomiting (N/V). PNV 67-iron ps-folate Take 1 capsule by 30 capsule 11 0 Active no.1-dha (VITAFOL mouth daily. ULTRA) 29 mg iron- 1 mg-200 mg CapIndications: High-risk in first trimester documented as of this encounter (statuses as of 10/03/2020) Active Problems Problem Noted Date Trichomonal vaginitis during , antepartum 12/2019 High-risk in first trimester 09/20/2020 BMI 28.0-28.9,adult 09/20/2020 Nausea/vomiting in 09/20/2020 Breast mass, right 09/20/2020 Positive depression screening 09/20/2020 Estimated Date of Delivery Comments Yes 05/01/2021 Based on last menstr ual period of 07/25/2020 documented as of this encounter (statuses as of 10/03/2020) Resolved Problems Problem Noted Date Resolved Date Nexplanon removal 01/22/2020 09/20/2020 Chlamydia trachomatis infection of lower genitourinary sites 03/16/2014 09/20/2020 Not immune to rubella 03/11/2014 09/20/2020 Overview: Equivocal; needs vaccination. ICD10 Diagnosis Term Filler Feeder Utility Irregular menstrual cycle 03/04/2014 09/20/2020 Dysmenorrhea 03/04/2014 09/20/2020 documented as of this encounter (statuses as of 10/03/2020) Immunizations Name Administration Dates Next Due Influenza [...] with No / Unsure 09/20/2020 8:58 AM SCABBLER someone who was confirmed or suspected to have Coronavirus / COVID-19? documented as of this encounter Last Filed Vital Signs Not on filedocumented in this encounter Miscellaneous Notes Telephone Encounter - Ana Lilia Melendrez RN - 10/03/2020 9:40 AM CSTCalled patient, patient having n/v. Patient states she can not hold down any food and minimal water. Patient states unable to keep down promethazine and feels like it makes n/v worse. Patient statesshe can not take unisom due to side effects. Patient crying on phone and states she can not deal with n/v. Advised to follow-up with er for IV medication since unable to keep down promethazine. Strict Er warnings given. Patient verbalized understanding. ANA LILIA MELENDREZ RN 10/03/2020 9:40 AM BLER Telephone Encounter - Bety Calabrese - 10/03/2020 9:02 AM CSTTravismaria guadalupe Sarkar is a 25 year old female Patient requesting to speak with provider, states medication for nausea and vomit is not helping herand is getting worse, she has not been able to eat. Please call [phone] (home) [facility] [address] [place] [address] BLER documented in this encounter Plan of Treatment Date Type Specialty Care Team Description 10/18/2020 Routine Visit [facility]ell[facility] Yael Devine, RESEARCH DEVELOPMENT DIRECTOR [address] [place], [place] [address] [phone] 10/18/2020 Appointment Radiology Tangela Rivera, RESEARCH DEVELOPMENT DIRECTOR [address] [place], [place] [address] [phone] 10/24/2020 Early Childhood Specialist Visit Maternal Medicine 10/24/2020 Early Childhood Specialist Visit [facility]ell[facility] Lab/Pedi, Pea-Rmchp Health Maintenance Due Date Last Done Comments DTaP,Tdap,and Td Vaccines (2 09/20/2021 06/03/2007 Pos tponed from 02/28/2004 - Tdap) (Alternative Fabrice delines) Depression Screening 09/20/2021 09/20/2020, 09/20/2020 PAP SMEAR 09/20/2023 09/20/2020, 03/10/2014 INFLUENZA VACCINE Completed 09/20/2020 PNEUMOCOCCAL 0-64 YEARS Aged Out No longe r eligible based COMBINED SERIES on patient's age to complete this to pic documented as of this encounter Results Not on filedocumented in this encounter Insurance Payer Benefit Plan / Subscriber ID Effective Dates Phone Addre ss Type Group [facility] MEDICAID OF [id number] 2020-[facility] [phone] [address] Medicaid [place] t [address] [place] [id number] [facility] [id number] 2014-Present [phone] [address] Medicaid [address] [place] [address] documented as of this encounter Advance Directives Name Relationship Healthcare Agent Relationship Co mmunication Hunter Yvonne [facility] Health Care Agent [phone] ( Mobile)
[2020-10-03 12:08] LABS: Absolute Lymphocytes (CBC) 1.2 K/uL (0.7-4.9); Basophils % 0.4 % (0-1.3); Hematocrit 37.2 % (36.0-45.0); MPV 8.8 fL (7.6-11.3); RBC Red Blood Cell Count 4.29 M/uL (3.86-4.86)
[2020-10-03 12:15] LABS: BUN Blood Urea Nitrogen 3 mg/dL (7-18); Bicarbonate 25 mmol/L (21-32); Glucose Level 84 mg/dL (74-106); Potassium 3.4 mmol/L (3.5-5.1); Sodium Level 139 mmol/L (136-145)
[2020-10-03] MEDS ORDERED: DIPHENHYDRAMINE 50 MG/ML VIAL ONE (12:15)
[2020-10-03] MEDS ORDERED: NA CHLORIDE 0.9% 1,000 ML ONE (12:15)
[2020-10-03] MEDS ORDERED: METOCLOPRAMIDE 10 MG/2mL INJ ONE (12:15)
[2020-10-03 14:24] LABS: Urine Blood NEGATIVE (NEG); Urine Glucose NEGATIVE (NEG); Urine Protein 1+ (NEG); Urine pH 8.5 (5.0-7.0)
--- NOTE | 2020-10-03 14:30 | EDPHYS ---
Physician Documentation [facility] Name: Tiffany Sarkar Age: 25 yrs Sex: Female : 1995 Arrival Date: 10/03/2020 Time: 11:14 Bed 18 Private MD: ED Physician Jose Stacy HPI: 10/03 11:27 This 25 yrs old Black Female presents to ER via Ambulatory with complaints of 10 Wks jmm , Vomiting. 11:27 The patient presents to the emergency department with nausea, vomiting. Onset: The jmm symptoms/episode began/occurred 1 week(s) ago. Possible causes: . The symptoms are aggravated by nothing. The symptoms are alleviated by nothing. Associated signs and symptoms: Pertinent negatives: vaginal bleeding, abdominal pain, diarrhea. 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 - Social history:: Smoking status: Patient denies any tobacco usage or history of. ROS: 11:27 Constitutional: Negative for fever, chills, and weight loss, Cardiovascular: Negative jmm for chest pain, palpitations, and edema, Respiratory: Negative for shortness of breath, cough, wheezing, and pleuritic chest pain. 11:27 Abdomen/GI: Positive for vomiting. 11:27 All other systems are negative. Exam: 11:27 Constitutional: This is a well developed, well nourished patient who is awake, alert, jmm and in no acute distress. Head/Face: atraumatic. Eyes: EOMI, no conjunctival erythema appreciated ENT: Moist Mucus Membranes Neck: Trachea midline, Supple Chest/axilla: Normal chest wall appearance and motion. Cardiovascular: Regular rate and rhythm. No edema appreciated Respiratory: Normal respirations, no respiratory distress appreciated Abdomen/GI: Non distended, soft Back: Normal ROM Skin: General appearance color normal MS/ Extremity: Moves all extremities, no obvious deformities appreciated, no edema noted to the lower extremities Neuro: Awake and alert, normal gait Psych: Behavior is normal, Mood is normal, Patient is cooperative and pleasant Vital Signs: 11:23 BP 131 / 84; Pulse 81; Resp 16; Temp 98.1; Pulse Ox 98% on R/A; Weight 72.57 kg; Height iw 5 ft. 4 in. (162.56 cm); Pain 8/10; 12:30 BP 129 / 80; Pulse 68; Resp 16 S; Pulse Ox 100% on R/A; ca1 13:30 BP 125 / 86; Pulse 91; Resp 16 S; Pulse Ox 100% on R/A; ca1 14:39 BP 128 / 56; Pulse 81; Resp 16 S; Pulse Ox 97% on R/A; ca1 15:20 BP 119 / 73; Pulse 76; Resp 16 S; Pulse Ox 99% on R/A; ca1 11:23 Body Mass Index 27.46 (72.57 kg, 162.56 cm) iw MDM: 11:34 Patient medically screened. [facility] 14:27 Data reviewed: vital signs, nurses notes. Counseling: I had a detailed discussion with gabriele the patient and/or guardian regarding: the historical points, exam findings, and any diagnostic results supporting the discharge/admit diagnosis, lab results, the need for outpatient follow up, to return to the emergency department if symptoms worsen or persist or if there are any questions or concerns that arise at home. ED course: Patient is able to tolerate po in the ED. No abdominal pain. Patient is advised to follow up with obgyn and otherwise given strict return precautions. Patient understood and agrees with the plan of care. . 10/03 11:39 Order name: CBC with Diff; Complete Time: 12:19 [facility] 10/03 11:39 Order name: BMP; Complete Time: 12:19 [facility] 10/03 13:56 Order name: Urine Dipstick--Ancillary (enter results); Complete Time: 14:27 10/03 13:56 Order name: Urine --Ancillary (enter results); Complete Time: 14:27 bd 10/03 11:39 Order name: Urine Dipstick-Ancillary (obtain specimen); Complete Time: 14:39 [facility] 10/03 11:48 Order name: IV Saline Lock; Complete Time: 11:48 ca1 10/03 14:01 Order name: PO challenge; Complete Time: 14:26 [facility] Administered Medications: 11:50 Drug: NS 0.9% 1000 ml Route: IV; Rate: 1 bolus; Site: left antecubital; ca1 13:00 Follow up: Response: No adverse reaction; IV Status: Completed infusion; IV Intake: ca1 1000ml 11:51 Drug: diphenhydrAMINE 25 mg Route: IVP; Site: left antecubital; ca1 12:30 Follow up: Response: No adverse reaction; Marked relief of symptoms ca1 11:55 Drug: Reglan 10 mg Route: IVP; Site: left antecubital; ca1 12:30 Follow up: Response: No adverse reaction; Nausea is decreased ca1 Disposition: 17:54 Co-signature as Attending Physician, Jose Stacy MD Did not see or evaluate patient. ps1 Signature for administrative purposes. . Disposition: 10/03/20 14:30 Discharged to Home. Impression: Vomiting. - Condition is Stable. - Discharge Instructions: Eating Plan for Hyperemesis Gravidarum. - Prescriptions for Zofran ODT 4 mg Oral tablet,disintegrating - place 1 tablet by TRANSLINGUAL route every 4-6 hours; 20 tablet. Reglan 10 mg Oral Tablet - take 1 tablet by ORAL route every 6 hours take 30 minutes before meals and at bedtime; 20 tablet. - Medication Reconciliation Form, Thank You Letter, Antibiotic Education, Prescription Opioid Use form. - Follow up: Private Physician; When: 2 - 3 days; Reason: Recheck today's complaints, Continuance of care, Re-evaluation by your physician. Signatures: Dispatcher [employer] EDMS Vinnie Dsouza PA PA jmm Williams, Irene, RN RN iw Singer, Phillip, MD MD ps1 Raven Ibrahim RN RN ca1 Corrections: (The following items were deleted from the chart) 15:25 14:30 10/03/2020 14:30 Discharged to Home. Impression: Vomiting. Condition is Stable. ca1 Forms are Medication Reconciliation Form, Thank You Letter, Antibiotic Education, Prescription Opioid Use. Follow up: Private Physician; When: 2 - 3 days; Reason: Recheck today's complaints, Continuance of care, Re-evaluation by your physician. gabriele
--- NOTE | 2020-10-03 14:30 | ER ---
Nurse's Notes [facility] Name: Tiffany Sarkar Age: 25 yrs Sex: Female : 1995 Arrival Date: 10/03/2020 Time: : Bed 18 Private MD: Diagnosis: Vomiting Presentation: 10/03 11:23 Chief complaint: Patient states: is approx 10 weeks has been seen at [facility] iw clinic, has been prescribed Promethazine and is still having vomiting. Coronavirus screen: At this time, the client does not indicate any symptoms associated with coronavirus-19. Ebola Screen: Patient negative for fever greater than or equal to 101.5 degrees Fahrenheit, and additional compatible Ebola Virus Disease symptoms Patient denies exposure to infectious person. Patient denies travel to an Ebola-affected area in the 21 days before illness onset. No symptoms or risks identified at this time. Initial Sepsis Screen: Does the patient meet any 2 criteria? No. Patient's initial sepsis screen is negative. Does the patient have a suspected source of infection? No. Patient's initial sepsis screen is negative. Risk Assessment: Do you want to hurt yourself or someone else? Patient reports no desire to harm self or others. Onset of symptoms was 2020. 11:23 Method Of Arrival: Ambulatory 11:23 Acuity: MYA 3 iw Triage Assessment: 11:39 General: Appears. GI: Reports nausea. 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 - Social history:: Smoking status: Patient denies any tobacco usage or history of. Screenin:37 Abuse screen: Denies threats or abuse. Denies injuries from another. Nutritional ca1 screening: No deficits noted. Tuberculosis screening: No symptoms or risk factors identified. Fall Risk IV access (20 points). Assessment: 11:37 General: Appears in no apparent distress. comfortable, Behavior is calm, cooperative, ca1 appropriate for age. Pain: Denies pain. Neuro: Level of Consciousness is awake, alert, obeys commands, Oriented to person, place, time, situation. Cardiovascular: Heart tones S1 S2 present Capillary refill < 3 seconds Patient's skin is warm and dry. Respiratory: Airway is patent Respiratory effort is even, unlabored, Breath sounds are clear bilaterally. GI: Abdomen is round non-distended, Bowel sounds present X 4 quads. Abd is soft and non tender X 4 quads. : No signs and/or symptoms were reported regarding the genitourinary system. EENT: No signs and/or symptoms were reported regarding the EENT system. Derm: Skin is intact, is healthy with good turgor, Skin is pink, warm \T\ dry. Musculoskeletal: Circulation, motion, and sensation intact. Capillary refill < 3 seconds. 12:30 Reassessment: Patient appears in no apparent distress at this time. Patient and/or ca1 family updated on plan of care and expected duration. Pain level reassessed. Patient is alert, oriented x 3, equal unlabored respirations, skin warm/dry/pink. 13:30 Reassessment: Patient appears in no apparent distress at this time. Patient and/or ca1 family updated on plan of care and expected duration. Pain level reassessed. Patient is alert, oriented x 3, equal unlabored respirations, skin warm/dry/pink. 14:39 Reassessment: Patient appears in no apparent distress at this time. Patient and/or ca1 family updated on plan of care and expected duration. Pain level reassessed. Patient is alert, oriented x 3, equal unlabored respirations, skin warm/dry/pink. Patient states feeling better. 15:20 Reassessment: Patient appears in no apparent distress at this time. Patient is alert, ca1 oriented x 3, equal unlabored respirations, skin warm/dry/pink. Vital Signs: 11:23 BP 131 / 84; Pulse 81; Resp 16; Temp 98.1; Pulse Ox 98% on R/A; Weight 72.57 kg; Height iw 5 ft. 4 in. (162.56 cm); Pain 8/10; 12:30 BP 129 / 80; Pulse 68; Resp 16 S; Pulse Ox 100% on R/A; ca1 13:30 BP 125 / 86; Pulse 91; Resp 16 S; Pulse Ox 100% on R/A; ca1 14:39 BP 128 / 56; Pulse 81; Resp 16 S; Pulse Ox 97% on R/A; ca1 15:20 BP 119 / 73; Pulse 76; Resp 16 S; Pulse Ox 99% on R/A; ca1 11:23 Body Mass Index 27.46 (72.57 kg, 162.56 cm) ED Course: 11:14 Patient arrived in ED. rg4 11:19 Vinnie Dsouza PA is PHCP. gabriele 11:19 Jose Stacy MD is Attending Physician. [facility] 11:25 Triage completed. iw 11:26 Arm band placed on. iw 11:35 Raven Ibrahim RN is Primary Nurse. ca1 11:37 Patient has correct armband on for positive identification. Placed in gown. Bed in low ca1 position. Call light in reach. Side rails up X 1. Pulse ox on. NIBP on. Warm blanket given. 11:47 Initial lab(s) drawn, by me, sent to lab. Inserted saline lock: 20 gauge in left ca1 antecubital area, using aseptic technique. Blood collected. 15:24 No provider procedures requiring assistance completed. IV discontinued, intact, ca1 bleeding controlled, No redness/swelling at site. Pressure dressing applied. Administered Medications: 11:50 Drug: NS 0.9% 1000 ml Route: IV; Rate: 1 bolus; Site: left antecubital; ca1 13:00 Follow up: Response: No adverse reaction; IV Status: Completed infusion; IV Intake: ca1 1000ml 11:51 Drug: diphenhydrAMINE 25 mg Route: IVP; Site: left antecubital; ca1 12:30 Follow up: Response: No adverse reaction; Marked relief of symptoms ca1 11:55 Drug: Reglan 10 mg Route: IVP; Site: left antecubital; ca1 12:30 Follow up: Response: No adverse reaction; Nausea is decreased ca1 Intake: 13:00 IV: 1000ml; Total: 1000ml. ca1 Outcome: 14:30 Discharge ordered by . [facility] 15:24 Discharged to home ambulatory. ca1 15:24 Condition: stable 15:24 Discharge instructions given to patient, Instructed on discharge instructions, follow up and referral plans. Demonstrated understanding of instructions, follow-up care, medications, Prescriptions given X 2. 15:25 Patient left the ED. ca1 Signatures: Vinnie Dsouza PA PA jmm Williams, Irene, RN RN Kayce Gomez rg4 Acob, Raven, RN RN ca1
[2020-10-06 09:22] VITALS: TEMP 98.1
[2020-10-06 09:27] VITALS: BP 119/73; O2SAT 99
== END 2020-10-03 15:25 | disposition home or self-care (01) ==
LOC: ER 11:11
DX: O21.9 Vomiting of pregnancy, unspecified (principal); Z3A.10 10 weeks gestation of pregnancy; Z88.0 Allergy status to penicillin
CPT/HCPCS: 96361; 85025; 80048; 36415; 81025; 81003; 96375; 96374; 99284; J2765; J1200; J7030